=== PATIENT | female | born 1965 | race Caucasian/White ===

== ENCOUNTER 2021-03-07 12:44 | Inpatient (IN) | payer BC ==
[2021-03-07] VITALS (37 sets, daily range): BP systolic 106; BP diastolic 82; PULSE 55; TEMP 98; O2SAT 91–100
[~2021-03-07] VITALS: Ht 165.1 cm; Wt 68.9 kg
[2021-03-07 13:32] LABS: BASO % 0.4 % (0.0-2.0); EOS % 0.3 % (0-4.0); GRAN % 59.2 % (42.2-75.2); LYMPH # 1.4 (1.2-3.4); LYMPH % 20.7 % (20.0-51.0); MEAN CELL VOLUME 101 fl (80.0-100.0); MEAN CORPUSCULAR HGB CONC 31 g/dl (33.0-37.0); MEAN PLATELET VOLUME 9.1 fl (7.4-10.4); MONO # 1.3 (0.1-0.6); MONO % 18.8 % (1.7-9.3); PLATELET COUNT 106 K/mm3 (130-400); RED BLOOD COUNT 3.13 M/mm3 (4.10-5.30); REDCELL DISTRIBUTION WIDTH-CV 14.7 % (11.5-14.5)
[2021-03-07 13:44] LABS: ALANINE AMINOTRANSFERASE 116 U/L (4-34); ALBUMIN 4.3 gm/dL (3.5-5.0); ALKALINE PHOSPHATASE 73 U/L (50-136); ANION GAP 29 mmol/L (7-16); AST,SGOT 280 U/L (15-37); BILIRUBIN,TOTAL 1.6 mg/dL (0.0-1.0); BLOOD UREA NITROGEN 27 mg/dL (7-17); CALCIUM 8.1 mg/dL (8.4-10.2); CREATININE, serum 1.91 (0.52-1.25); GLUCOSE 149 mg/dL (74-106); POTASSIUM 4.8 mmol/L (3.4-5.0); SODIUM 127 mmol/L (137-145); TOTAL PROTEIN 6.8 gm/dL (6.4-8.2)
[2021-03-07 13:48] LABS: HEMATOCRIT 31.5 % (37.0-47.0); HEMOGLOBIN 9.8 g/dl (12.5-16.0); MEAN CORPUSCULAR HEMOGLOBIN 31 pg (27.0-31.0)
[2021-03-07 13:52] LABS: PROTHROMBIN TIME 10.9 SECONDS (9.7-12.8)
[2021-03-07 14:00] LABS: C-REACTIVE PROTEIN < 0.5 mg/dL (0.0-0.9)
[2021-03-07 14:01] LABS: CARBON DIOXIDE 11 mmol/L (22-30); CHLORIDE 87 mmol/L (98-107)
[2021-03-07 14:22] LABS: LIPASE 4792 U/L (23-300)
[2021-03-07 14:23] LABS: TROPONIN-I 0.017 ng/mL (0.000-0.035)
[2021-03-07 18:17] LABS: COLLECTION METHOD CLEAN CATCH
[2021-03-07 18:28] LABS: MUCOUS Present /lpf; PH 6 (5-8); URINE APPEARANCE Cloudy; URINE BACTERIA Rare /hpf; URINE BILIRUBIN Positive (NEGATIVE); URINE BLOOD Negative (NEGATIVE); URINE COLOR Yellow; URINE GLUCOSE Negative (NEGATIVE); URINE KETONE 2+ (NEGATIVE); URINE LEUKOCYTE ESTERASE Negative (NEGATIVE); URINE NITRATE Negative (NEGATIVE); URINE PROTEIN(semi-quant) 1+ (NEGATIVE); URINE RBC 0-2 /hpf; URINE UROBILINOGEN >=4.0 mg/dL (NEGATIVE)
[2021-03-07 18:42] LABS: CREATININE, serum 1.6 (0.52-1.25)
[2021-03-07 18:50] LABS: FRACTIONAL EXCRETION OF NA+ 0.2 %
[2021-03-07 18:55] LABS: CALCIUM 7.4 mg/dL (8.4-10.2); CREATININE, serum 1.55 (0.52-1.25); POTASSIUM 4.3 mmol/L (3.4-5.0)
[2021-03-07] MEDS ORDERED: PRINIVIL20 MG PO (19:18)
[2021-03-07] MEDS ORDERED: KLONOPIN 0.5MG0.5 MG PO (19:19)
[2021-03-07] MEDS ORDERED: CATAPRES0.2 MG PO (19:20)
[2021-03-07] MEDS ORDERED: PRILOTC (19:20)
--- NOTE | 2021-03-07 22:45 | NUR ---
Pt arrived to ICU room 8 via cart with Michelle ED RN. Pt transferred from the cart to the ICU bed with SBA. Levophed infusing through peripheral IV in RA. Pt oriented to room and call light system. Pt is sitting up in the bed and she denies further needs. Call light within reach.
--- NOTE | 2021-03-07 22:55 | NUR ---
Dr. Galvin at bedside to place central line.
[2021-03-07 23:11] LABS: FOLATE (FOLIC ACID) 1.9 ng/mL (2.0-20.0)
[2021-03-08] VITALS (1079 sets, daily range): BP systolic 92–121; BP diastolic 56–79; PULSE 54–87; TEMP 97.5–98.6; O2SAT 67–100
[2021-03-08 05:56] LABS: ALBUMIN 3.1 gm/dL (3.5-5.0); BILIRUBIN,TOTAL 0.9 mg/dL (0.0-1.0); CALCIUM 7.3 mg/dL (8.4-10.2); CREATININE, serum 1.39 (0.52-1.25); POTASSIUM 3.8 mmol/L (3.4-5.0); TOTAL PROTEIN 5.5 gm/dL (6.4-8.2)
[2021-03-08 06:09] LABS: BASO % 0.4 % (0.0-2.0); EOS # 0.1 (0.0-0.7); EOS % 1.6 % (0-4.0); GRAN # 2.7 (1.4-6.5); GRAN % 52.9 % (42.2-75.2); LYMPH # 1.4 (1.2-3.4); LYMPH % 27.2 % (20.0-51.0); MEAN CELL VOLUME 99 fl (80.0-100.0); MEAN CORPUSCULAR HGB CONC 32 g/dl (33.0-37.0); MEAN PLATELET VOLUME 9.3 fl (7.4-10.4); MONO # 0.9 (0.1-0.6); MONO % 17.3 % (1.7-9.3); PLATELET COUNT 55 K/mm3 (130-400); RED BLOOD COUNT 2.55 M/mm3 (4.10-5.30); REDCELL DISTRIBUTION WIDTH-CV 14.6 % (11.5-14.5)
[2021-03-08 06:44] LABS: HEMATOCRIT 25.2 % (37.0-47.0); HEMOGLOBIN 8.1 g/dl (12.5-16.0); MEAN CORPUSCULAR HEMOGLOBIN 32 pg (27.0-31.0)
--- NOTE | 2021-03-08 08:00 | NUR ---
Bedside shift report given to TU Knowles.
--- NOTE | 2021-03-08 08:00 | NUR ---
Patient alert and oriented and resting in bed. Denies any concerns at this time. VS stable although still on a low dose of levophed. Will continue to monitor.
--- NOTE | 2021-03-08 09:07 | NUR ---
Tobacco Stemmer Machine met with patient to discuss discharge planning. Patient lives alone in [place] and sees Dr. Weir for primary care. Patient obtains medications from [facility] pharmacy with no difficulties at this time. Patient works for [employer]. Patient does not use any DME and reports independence with ADLS. Patient plans to return home upon discharge. Patient is interested in completing DPOA-HC and would like to designate her brother, Jase (ph#[phone]) and her friend, Rere López. BRE assisted patient in completing the form then BRE and Chavo BERRY provided witness signatures. Discharge Plan: Home
--- NOTE | 2021-03-08 21:00 | NUR ---
Assessment complete. Pt is AXo X3, denies having any pain at this time. Pt is resting quietly in the bed at this time and she denies further needs. Call light within reach.
[2021-03-09] VITALS (544 sets, daily range): BP systolic 108–137; BP diastolic 73–84; PULSE 51–74; TEMP 98.3–99.1; O2SAT 66–100
[2021-03-09 05:49] LABS: BASO % 0.6 % (0.0-2.0); EOS # 0.1 (0.0-0.7); EOS % 1.8 % (0-4.0); GRAN # 1.8 (1.4-6.5); GRAN % 52.4 % (42.2-75.2); LYMPH # 0.9 (1.2-3.4); LYMPH % 27.5 % (20.0-51.0); MEAN CELL VOLUME 96 fl (80.0-100.0); MEAN CORPUSCULAR HGB CONC 33 g/dl (33.0-37.0); MEAN PLATELET VOLUME 9.6 fl (7.4-10.4); MONO # 0.6 (0.1-0.6); MONO % 16.8 % (1.7-9.3); PLATELET COUNT 55 K/mm3 (130-400); RED BLOOD COUNT 2.51 M/mm3 (4.10-5.30); REDCELL DISTRIBUTION WIDTH-CV 14.1 % (11.5-14.5)
[2021-03-09 05:57] LABS: MEAN CORPUSCULAR HEMOGLOBIN 32 pg (27.0-31.0)
[2021-03-09 06:10] LABS: CREATININE, serum 0.75 (0.52-1.25); POTASSIUM 3.3 mmol/L (3.4-5.0)
--- NOTE | 2021-03-09 07:19 | NUR ---
Bedside shift report given to TU Knowles.
--- NOTE | 2021-03-09 09:00 | NUR ---
OT at bedside; assisted patient with bed bath and up to recliner; tolerated well. No concerns at this time.
--- NOTE | 2021-03-09 10:19 | NUR ---
Patient to transfer to the medical floor today.
--- NOTE | 2021-03-09 10:53 | NUR ---
Patient transfered from ICU to medical floor. Accompanied by medical PAYROLL BENEFITS CLERK and RN. Alert and oriented and in no distress upon discharge.
--- NOTE | 2021-03-09 12:40 | NUR ---
1100 PT RECEIVED FROM ICU. SWIFT CATHETER INPLACE. VS STABLE. COMFORT MEASURES IN PLACE. PT ORIENTED TO ROOM. WILL CONTINUE TO MONITOR.
--- NOTE | 2021-03-09 16:50 | NUR ---
SWIFT DISCONTINUED ORDERED. PT TOLERATED WELL.
--- NOTE | 2021-03-09 18:35 | NUR ---
CALL PLACED TO MIYA PT D DIMER IS [phone], WILL REVIEW AND POSSIBLE CT CHEST.
--- NOTE | 2021-03-09 20:00 | NUR ---
Report received, assumed care for preparation operator. Assessment complete. A&Ox3. Denies pain/shortness of breath. States zofran helped nausea a little bit. Plan of care discussed for this shift to include HS meds/nausea meds/calling for questions/concerns. Verbalizes understanding/denies needs. Call light in reach. Will monitor.
--- NOTE | 2021-03-09 21:39 | NUR ---
Notified hospitalist-CRUZITO Mahoney-of nausea with no relief from zofran. New orders received and initiated.
[2021-03-10] VITALS (7 sets, daily range): BP systolic 118–147; BP diastolic 74–87; PULSE 74–96; TEMP 97.8–99.8
--- NOTE | 2021-03-10 02:00 | NUR ---
Resting eyes closed. No s/s of pain/discomfort noted. Will continue to monitor.
--- NOTE | 2021-03-10 02:39 | NUR ---
PT CONTINUES TO BE ON RA >24HRS, COMPLETING INTERVENTION.
--- NOTE | 2021-03-10 05:02 | NUR ---
Rested well post phenergan dose. Denied pain/shortness of breath. VS remained stable. Did not tolerate PM general diet meal without N/V. Encouraged to call for needs. Call light in reach. will monitor.
--- NOTE | 2021-03-10 06:43 | NUR ---
Off tele to go to shower.
[2021-03-10 07:20] LABS: BASO % 0.5 % (0.0-2.0); EOS # 0.1 (0.0-0.7); EOS % 1.6 % (0-4.0); GRAN % 52.8 % (42.2-75.2); LYMPH % 26.9 % (20.0-51.0); MEAN CELL VOLUME 98 fl (80.0-100.0); MEAN CORPUSCULAR HGB CONC 32 g/dl (33.0-37.0); MEAN PLATELET VOLUME 10.6 fl (7.4-10.4); MONO # 0.7 (0.1-0.6); MONO % 17.7 % (1.7-9.3); PLATELET COUNT 62 K/mm3 (130-400); RED BLOOD COUNT 2.64 M/mm3 (4.10-5.30); REDCELL DISTRIBUTION WIDTH-CV 14.4 % (11.5-14.5)
[2021-03-10 07:21] LABS: CALCIUM 8.6 mg/dL (8.4-10.2); CREATININE, serum 0.61 (0.52-1.25); POTASSIUM 3.6 mmol/L (3.4-5.0)
[2021-03-10 07:23] LABS: HEMATOCRIT 25.9 % (37.0-47.0); HEMOGLOBIN 8.4 g/dl (12.5-16.0); MEAN CORPUSCULAR HEMOGLOBIN 32 pg (27.0-31.0)
--- NOTE | 2021-03-10 14:31 | NUR ---
0800 PT RECEIVED RESTING IN BED WATCHING TV. NO S/S OF DISTRESS NOTED. PT DENIES PAIN. V/S STABLE. PT STATES SHE FEELS SLIGHTLY NAUSOUS AFTER HAVING SOME OF HER GENERAL DIET BREAKFAST. ZOFRAN OFFERED AND PT STATES SHE WOULD LIKE TO WAIT. COMFORT MEASURES IN PLACE. WILL CONTINUE TO MONITOR. 0900 MEDICATIONS ADMINISTERED ORDERED. 1030 DR GRAHAM AT BEDSIDE, GI CONSULT CALLED, AND PT DIET WAS SWITCH FROM GENERAL TO CLEAR LIQUID SHE DID NOT TOLERATED HER BREAKFAST WELL. PT CURRENTLY DENIES NAUSEA. WILL CONTINUE TO MONITOR.
--- NOTE | 2021-03-10 20:00 | NUR ---
Report received, assumed care for shift production associate. Assessment complete. A&Ox3. Denies pain/shortness of breath. Still reporting nausea post clear liquid diet tray. Plan of care discussed for this shift to include HS meds/nausea meds/calling for questions/concerns. Verbalizes understanding/denies needs. Call light in reach. Will monitor.
--- NOTE | 2021-03-10 21:59 | NUR ---
Called with c/o nausea. States dinner clear liquid tray did not sit well with her. Requesting phenergan over zofran. Given at this time per order.
--- NOTE | 2021-03-11 02:12 | NUR ---
During hourly rounds patient c/o nausea without emesis. Requesting Phenergan but can not have until 04. Did agree to try Zofran again. Given at this time per dr order.
[2021-03-11 04:52] VITALS: BP 121/69; PULSE 74; TEMP 98.8
--- NOTE | 2021-03-11 06:34 | NUR ---
C/o nausea twice this shift. Received one dose of phenergan one dose of zofran with good results. Denies pain/shortness of breath. VS remained stable. Denies current needs. Call light in reach. will monitor.
[2021-03-11 07:53] LABS: BASO % 0.4 % (0.0-2.0); EOS # 0.1 (0.0-0.7); EOS % 1.7 % (0-4.0); GRAN # 2.6 (1.4-6.5); GRAN % 53.8 % (42.2-75.2); LYMPH # 1.3 (1.2-3.4); LYMPH % 26.1 % (20.0-51.0); MEAN CELL VOLUME 98 fl (80.0-100.0); MEAN CORPUSCULAR HGB CONC 32 g/dl (33.0-37.0); MEAN PLATELET VOLUME 9.8 fl (7.4-10.4); MONO # 0.8 (0.1-0.6); MONO % 17.4 % (1.7-9.3); PLATELET COUNT 101 K/mm3 (130-400); RED BLOOD COUNT 2.85 M/mm3 (4.10-5.30); REDCELL DISTRIBUTION WIDTH-CV 14.6 % (11.5-14.5)
[2021-03-11 07:59] LABS: HEMOGLOBIN 8.9 g/dl (12.5-16.0); MEAN CORPUSCULAR HEMOGLOBIN 31 pg (27.0-31.0)
[2021-03-11 08:06] LABS: ALBUMIN 3.5 gm/dL (3.5-5.0); BILIRUBIN,TOTAL 0.8 mg/dL (0.0-1.0); CALCIUM 8.9 mg/dL (8.4-10.2); CREATININE, serum 0.59 (0.52-1.25); POTASSIUM 3.7 mmol/L (3.4-5.0); TOTAL PROTEIN 6.3 gm/dL (6.4-8.2)
[2021-03-11 08:29] VITALS: BP 128/82; PULSE 85; TEMP 98.5
[2021-03-11 11:31] VITALS: BP 137/88; PULSE 77; TEMP 98.5
[2021-03-11 11:39] LABS: IRON,SERUM 56 ug/dL (35-150)
[2021-03-11 11:48] LABS: TOTAL IRON BINDING CAPACITY 187 ug/dL (265-497)
[2021-03-11 16:34] VITALS: BP 117/81; PULSE 94; TEMP 98.1
[2021-03-11 20:03] VITALS: BP 116/80; PULSE 92; TEMP 98.9
--- NOTE | 2021-03-11 22:03 | NUR ---
PT UNABLE TO FINISH LAST 2 GLASSES OF BOWEL PREP, HAVING NAUSEA/VOMITING. HAS HAD NO STOOLS YET. WILL MONITOR FOR CHANGES.
[2021-03-11 23:38] VITALS: BP 122/75; PULSE 92; TEMP 98.6
[2021-03-12] VITALS (10 sets, daily range): BP systolic 123–150; BP diastolic 65–99; PULSE 78–104; TEMP 97.6–98.7
--- NOTE | 2021-03-12 02:00 | NUR ---
PT HAS LARGE LIQUID BROWN STOOL. FINISHES LAST GLASS OF BOWEL PREP.
--- NOTE | 2021-03-12 06:00 | NUR ---
NOTIFIED BY HEEL LIFT GOUGER PT HAS HR 170'S. PT IS STANDING AT THE SINK TAKING A SPONGE BATH, DENIES CHEST PAIN, SHORTNESS OF BREATH OR FEELING OF RAPID HEART RATE. NEW ORDERS FOR TROPONIN AND EKG.
--- NOTE | 2021-03-12 06:10 | NUR ---
CARMELLA EAST IS AWARE OF PT HR, SHE VISITS PT IN HER ROOM.
[2021-03-12 06:17] LABS: MEAN CELL VOLUME 99 fl (80.0-100.0); MEAN CORPUSCULAR HGB CONC 32 g/dl (33.0-37.0); MEAN PLATELET VOLUME 9.7 fl (7.4-10.4); PLATELET COUNT 91 K/mm3 (130-400); RED BLOOD COUNT 2.63 M/mm3 (4.10-5.30); REDCELL DISTRIBUTION WIDTH-CV 15.2 % (11.5-14.5)
[2021-03-12 06:28] LABS: HEMATOCRIT 26.1 % (37.0-47.0); HEMOGLOBIN 8.4 g/dl (12.5-16.0); MEAN CORPUSCULAR HEMOGLOBIN 32 pg (27.0-31.0)
[2021-03-12 06:32] LABS: ANION GAP 3 mmol/L (7-16); BLOOD UREA NITROGEN 2 mg/dL (7-17); CALCIUM 8.8 mg/dL (8.4-10.2); CARBON DIOXIDE 30 mmol/L (22-30); CHLORIDE 103 mmol/L (98-107); CREATININE, serum 0.62 (0.52-1.25); GLUCOSE 93 mg/dL (74-106); POTASSIUM 3.6 mmol/L (3.4-5.0); SODIUM 137 mmol/L (137-145)
[2021-03-12 06:54] LABS: TROPONIN-I < 0.012 ng/mL (0.000-0.035)
[2021-03-12 07:02] LABS: MAGNESIUM 1.3 mg/dL (1.6-2.3)
[2021-03-12 07:29] LABS: BAND 8 % (0-10); LYMPHOCYTE 33 % (20.0-51.0); NEUTROPHILS 50 % (42.0-75.2)
[2021-03-12 07:30] LABS: PLATELET ESTIMATE NORMAL (NORMAL)
--- NOTE | 2021-03-12 08:06 | NUR ---
Shift assessment complete. Sitting up in bed using personal laptop. A&Ox4. Heart rate slightly tachy w/rhythm regular. Lungs CTA. Denies any pain, including chest pain. Also denies dizziness or nausea. Does report SOA w/exertion. Pt NPO since midnight for EGD/colon this afternoon aside from 2 pills w/sip of water. Denies needs currently. Continuing to monitor.
[2021-03-12] MEDS ORDERED: FOLIC ACID 11 MG/TA1 PO (10:23)
[2021-03-12] MEDS ORDERED: MAG-OX 400400 MG/TAB PO (14:19)
[2021-03-12] MEDS ORDERED: ZOFRAN ODT4 MG PO (14:20)
--- NOTE | 2021-03-12 16:58 | NUR ---
Discharge instructions discussed w/pt and all questions answered. Left IJ removed w/o s/s complication. Pressure applied for 10 minutes and pt educated on s/s infection/complication. Pt in room awaiting ride.
--- NOTE | 2021-03-12 17:00 | NUR ---
Pt escorted out at this time.
== END 2021-03-12 17:00 | disposition home or self-care (01) | DRG 682 ==
LOC: COL.ER 12:44 → MEDICAL 14:56 → ICU 14:56 → MEDICAL 03-09 11:21
PROVIDERS: Emergency Medicine; Internal Medicine; Internal Medicine Gastroenterology; Physician Assistant; Student in an Organized Health Care Education/Training Program; ADMIT Internal Medicine
PROC: 02HV33Z Insertion of Infusion Device into Superior Vena Cava, Percutaneous Approach (ICD-10-PCS; principal; 2021-03-07)
PROC: 0DB38ZX Excision of Lower Esophagus, Via Natural or Artificial Opening Endoscopic, Diagnostic (ICD-10-PCS; 2021-03-12)
PROC: 0DBN8ZX Excision of Sigmoid Colon, Via Natural or Artificial Opening Endoscopic, Diagnostic (ICD-10-PCS; 2021-03-12)
PROC: 0DBE8ZX Excision of Large Intestine, Via Natural or Artificial Opening Endoscopic, Diagnostic (ICD-10-PCS; 2021-03-12)
PROC: 0DB98ZX Excision of Duodenum, Via Natural or Artificial Opening Endoscopic, Diagnostic (ICD-10-PCS; 2021-03-12 13:30)
DX: N17.9 Acute kidney failure, unspecified (principal); K85.90 Acute pancreatitis without necrosis or infection, unspecified; R57.1 Hypovolemic shock; E87.1 Hypo-osmolality and hyponatremia; E87.2 Acidosis; D69.6 Thrombocytopenia, unspecified; D12.5 Benign neoplasm of sigmoid colon; K52.832 Lymphocytic colitis; Z20.822 Contact with and (suspected) exposure to COVID-19; D53.9 Nutritional anemia, unspecified; I10 Essential (primary) hypertension; E83.42 Hypomagnesemia; K76.0 Fatty (change of) liver, not elsewhere classified; K21.9 Gastro-esophageal reflux disease without esophagitis; F41.9 Anxiety disorder, unspecified; E87.8 Other disorders of electrolyte and fluid balance, not elsewhere classified; E86.0 Dehydration; R00.0 Tachycardia, unspecified; R13.10 Dysphagia, unspecified; R19.02 Left upper quadrant abdominal swelling, mass and lump
CPT/HCPCS: 99222-AI; 99232-AI; 99233-AI; 99239; A4314; J2405; J2550; J2704; J3475; J3480; J7030; J7060; J7120; Q9967

== ENCOUNTER → 2021-04-04 | Outpatient (CLI) | payer BC ==
[~2021-04-04] MED LIST: CATAPRES0.2 MG PO; FOLIC ACID 11 MG/TA1 PO; KLONOPIN 0.5MG0.5 MG PO; MAG-OX 400400 MG/TAB PO; PRILOTC; PRINIVIL20 MG PO; ZOFRAN ODT4 MG PO
== END ==
LOC: COL.RAD 09:08
DX: D53.9 Nutritional anemia, unspecified (principal); R74.01 Elevation of levels of liver transaminase levels; K52.832 Lymphocytic colitis; K21.9 Gastro-esophageal reflux disease without esophagitis; K85.90 Acute pancreatitis without necrosis or infection, unspecified; R19.7 Diarrhea, unspecified; R93.5 Abnormal findings on diagnostic imaging of other abdominal regions, including retroperitoneum; K82.8 Other specified diseases of gallbladder
CPT/HCPCS: A9537

== ENCOUNTER 2021-09-03 05:33 | Emergency (ER) | payer BC ==
[~2021-09-03] VITALS: Ht 165.1 cm; Wt 59.1 kg
[2021-09-03 05:41] VITALS: TEMP 97.2
[2021-09-03 06:47] LABS: BASO # 0.1 K/mm3 (0.0-0.2); BASO % 1.1 % (0.0-2.0); EOS % 0.5 % (0.0-4.0); GRAN # 4.2 K/mm3 (1.4-6.5); GRAN % 65.7 % (42.2-75.2); HEMOGLOBIN 11.8 g/dl (12.5-16.0); LYMPH # 1.6 K/mm3 (1.2-3.4); LYMPH % 24.5 % (20.0-51.0); MEAN CELL VOLUME 87 fl (80.0-100.0); MEAN CORPUSCULAR HEMOGLOBIN 28 pg (27-31); MEAN CORPUSCULAR HGB CONC 32 g/dl (33.0-37.0); MEAN PLATELET VOLUME 8.2 fl (7.4-10.4); MONO # 0.5 K/mm3 (0.1-0.6); MONO % 7.4 % (1.7-9.3); PLATELET COUNT 149 K/mm3 (130-400); RED BLOOD COUNT 4.19 M/mm3 (4.10-5.30); REDCELL DISTRIBUTION WIDTH-CV 16.7 % (11.5-14.5)
[2021-09-03 06:51] LABS: HEMATOCRIT 36.4 % (37.0-47.0)
[2021-09-03] MEDS ORDERED: FLEXERIL 1010 MG/TAB PO ×3 (06:51→13:43)
[2021-09-03] MEDS ORDERED: NORCO 325 MG-51 TAB PO ×3 (06:51→13:43)
[2021-09-03] MEDS ORDERED: ZOFRAN ODT4 MG PO ×3 (06:53→13:43)
[2021-09-03 07:03] LABS: ALBUMIN 4.6 gm/dL (3.5-5.0); BILIRUBIN,TOTAL 0.6 mg/dL (0.2-1.2); CREATININE, serum 0.76 mg/dL (0.57-1.11); POTASSIUM 3.7 mmol/L (3.5-4.5); TOTAL PROTEIN 7.7 gm/dL (6.2-8.1)
[2021-09-03 07:19] VITALS: BP 164/108; PULSE 115
== END 2021-09-03 07:19 | disposition home or self-care (01) ==
LOC: COL.ER 05:33
PROVIDERS: Personal Emergency Response Attendant
DX: M54.16 Radiculopathy, lumbar region (principal); I10 Essential (primary) hypertension; F41.9 Anxiety disorder, unspecified; D64.9 Anemia, unspecified; R94.5 Abnormal results of liver function studies; Z79.899 Other long term (current) drug therapy
CPT/HCPCS: J2270; J2405; J7030

== ENCOUNTER 2021-09-07 06:51 | Emergency (ER) | payer BC ==
[~2021-09-07] VITALS: Ht 165.1 cm; Wt 56.8 kg
[~2021-09-07 06:51] MED LIST changes: +FLEXERIL 1010 MG/TAB PO; +NORCO 325 MG-51 TAB PO
[2021-09-07 07:00] VITALS: TEMP 97.9
[2021-09-07 07:25] LABS: BASO % 0.6 % (0.0-2.0); EOS # 0.1 K/mm3 (0.0-0.7); EOS % 2.5 % (0.0-4.0); GRAN # 2.1 K/mm3 (1.4-6.5); GRAN % 44.8 % (42.2-75.2); HEMOGLOBIN 10.8 g/dl (12.5-16.0); LYMPH # 1.8 K/mm3 (1.2-3.4); LYMPH % 37.6 % (20.0-51.0); MEAN CELL VOLUME 85 fl (80.0-100.0); MEAN CORPUSCULAR HEMOGLOBIN 29 pg (27-31); MEAN CORPUSCULAR HGB CONC 34 g/dl (33.0-37.0); MEAN PLATELET VOLUME 8.5 fl (7.4-10.4); MONO # 0.7 K/mm3 (0.1-0.6); MONO % 13.9 % (1.7-9.3); PLATELET COUNT 107 K/mm3 (130-400); RED BLOOD COUNT 3.77 M/mm3 (4.10-5.30); REDCELL DISTRIBUTION WIDTH-CV 16.9 % (11.5-14.5)
[2021-09-07 07:57] LABS: ALBUMIN 4.2 gm/dL (3.5-5.0); BILIRUBIN,TOTAL 0.8 mg/dL (0.2-1.2); C-REACTIVE PROTEIN 0.4 mg/dL (0.00-0.50); CREATININE, serum 0.71 mg/dL (0.57-1.11); POTASSIUM 3.2 mmol/L (3.5-4.5); TOTAL PROTEIN 6.9 gm/dL (6.2-8.1)
--- NOTE | 2021-09-07 08:38 | NUR ---
hired worker contacted due to multiple patient falls. Patient had just received a pain shot and was unarousable upon entry. Patient's father, Ganga ([phone]) at bedside. Most of the intake information obtained by father. Patient lives at home in [place] alone but is in the process of packing and moving to [place]. Patient is normally independent with her ADL's. Her father states that he has offered to bring over an extra cane and a walker to her to assist but she has refused them up until this point. PCP is Dr. Dilcia Weir. Patient is not and has no children. Due to the holiday, MRI is unavavilable, however collaboration made with the RN and physician. Physician does not feel as if admitting the patient is appropriate due to bed shortages and no significant clinical findings. Informed the physician that i will reach out to Dr. Jones office on Friday to arrange OP PT for this patient.
[2021-09-07] MEDS ORDERED: MEDROL 4MG DOSPA4 MG PO (08:46)
[2021-09-07] MEDS ORDERED: NORCO 325 MG-51 TAB PO (08:46)
[2021-09-07 08:59] VITALS: BP 130/74; PULSE 69
--- NOTE | 2021-09-10 14:02 | NUR ---
weld lay out worker contacted Fina social media marketing manager at Dr Weir's office and requested that they review case for possible home health orders. Will await Fina's return call.
--- NOTE | 2021-09-10 14:43 | NUR ---
Fina with Dr Weir's office confirmed that they have attemtped to contact patient to arrange a home health referral for patient.
== END 2021-09-07 09:17 | disposition home or self-care (01) ==
LOC: COL.ER 06:51
PROVIDERS: Family Medicine
DX: M54.50 Low back pain, unspecified (principal); R26.2 Difficulty in walking, not elsewhere classified; I10 Essential (primary) hypertension; F41.9 Anxiety disorder, unspecified; K21.9 Gastro-esophageal reflux disease without esophagitis; D64.9 Anemia, unspecified; Z79.899 Other long term (current) drug therapy
CPT/HCPCS: J1885; J2360

== ENCOUNTER 2021-09-12 01:20 | Emergency (ER) | payer BC ==
[~2021-09-12] VITALS: Ht 165.1 cm; Wt 59.1 kg
[~2021-09-12 01:20] MED LIST changes: +MEDROL 4MG DOSPA4 MG PO
[2021-09-12 01:30] VITALS: TEMP 98.2
[2021-09-12] MEDS ORDERED: ASPERCREME1 EACH TP (01:50)
[2021-09-12 02:00] VITALS: BP 138/81; PULSE 80
== END 2021-09-12 02:05 | disposition home or self-care (01) ==
LOC: COL.ER 01:20
DX: M54.50 Low back pain, unspecified (principal); I10 Essential (primary) hypertension; F41.9 Anxiety disorder, unspecified; K21.9 Gastro-esophageal reflux disease without esophagitis; D64.9 Anemia, unspecified; Z87.891 Personal history of nicotine dependence; Z79.899 Other long term (current) drug therapy

== ENCOUNTER 2021-09-14 03:13 | Emergency (ER) | payer BC ==
[~2021-09-14] VITALS: Ht 167.6 cm; Wt 59.1 kg
[~2021-09-14 03:13] MED LIST changes: +ASPERCREME1 EACH TP
[2021-09-14 03:25] VITALS: TEMP 97.6
[2021-09-14 04:16] VITALS: BP 142/88; PULSE 99
== END 2021-09-14 04:16 | disposition home or self-care (01) ==
LOC: COL.ER 03:13
DX: M54.42 Lumbago with sciatica, left side (principal); Z90.49 Acquired absence of other specified parts of digestive tract; Z88.6 Allergy status to analgesic agent
CPT/HCPCS: J2270

== ENCOUNTER 2021-09-16 04:43 | Emergency (ER) | payer BC ==
[~2021-09-16] VITALS: Ht 165.1 cm; Wt 59.1 kg
[2021-09-16 04:49] VITALS: BP 145/79; PULSE 107; TEMP 98.1
== END 2021-09-16 05:14 | disposition home or self-care (01) ==
LOC: COL.ER 04:43
DX: M54.42 Lumbago with sciatica, left side (principal); Z88.6 Allergy status to analgesic agent; Z79.1 Long term (current) use of non-steroidal anti-inflammatories (NSAID)